=== PATIENT | female | born 1965 | race Caucasian/White ===

== ENCOUNTER 2016-11-16 12:08 | Emergency (ER) | payer OTHER ==
[2016-11-16] MEDS ORDERED: KETOROLAC 30 MG/ML 1 ML VIAL IVP STA (13:49)
[2016-11-16] MEDS ORDERED: SODIUM CHLORIDE 0.9% 1,000 ML IV STA (13:49)
[2016-11-16] MEDS ORDERED: METOCLOPRAMIDE 5 MG/ML 2 ML VIAL IVP STA (13:49)
--- NOTE | 2016-11-16 13:51 | ED ---
General Adult HPI - General Chief complaint: Abdominal Pain Stated complaint: Right side Abd Pain Time Seen by Provider: 11/16/16 13:45 Source: patient, RN notes reviewed Mode of arrival: ambulatory Limitations: no limitations - History of Present Illness Initial comments: Patient is a pleasant 51-year-old female presenting to the emergency Department with right flank pain. Onset was sudden around 2 hours ago. Discomfort has been steady and severe since that time. Patient has had similar symptoms 3-4 times previously associated with kidney stones. Patient has urgency urinate however no hematuria or dysuria. No back pain. Patient has nausea and did vomit. No constipation or diarrhea. No fever. - Related Data Home Medications Medication Instructions Recorded Confirmed HYDROcodone/APAP 10-325MG [[place] 1 tab PO Q6H 01/12/15 11/16/16 10] Isosorbide Mononitrate ER [Imdur] 30 mg PO DAILY 01/12/15 11/16/16 Albuterol Inhaler [Ventolin Hfa 2 puff INHALATION RT-Q6H PRN 12/10/15 11/16/16 Inhaler] Ipratropium [place] [Atrovent Hfa] 2 puff INHALATION RT-DAILY 12/10/15 11/16/16 Ipratropium [place] [Atrovent Hfa] 2 puff INHALATION RT-HS PRN 12/10/15 11/16/16 Pravastatin Sodium [Pravachol] 20 mg PO HS 11/16/16 11/16/16 Previous Rx's Medication Instructions Recorded Ketorolac [Toradol] 10 mg PO Q6HR PRN #15 tab 11/16/16 Metoclopramide HCl [Reglan] 10 mg PO Q6HR PRN #15 tablet 11/16/16 Allergies Allergy/AdvReac Type Severity Reaction Status Date / Time Iodinated Contrast Media - Allergy Rash/Hives Verified 11/16/16 14:04 Oral and shellfish derived [Shellfish] Allergy Rash/Hives Verified 11/16/16 14:04 codeine AdvReac Nausea Verified 11/16/16 12:32 Review of Systems ROS Statement: Those systems with pertinent positive or pertinent negative responses have been documented in the HPI. ROS Other: All systems not noted in ROS Statement are negative. Constitutional: Denies: fever Eyes: Denies: eye pain ENT: Denies: ear pain Respiratory: Denies: cough Cardiovascular: Denies: chest pain Endocrine: Denies: fatigue Gastrointestinal: Reports: abdominal pain, nausea, vomiting Genitourinary: Reports: urgency. Denies: dysuria, hematuria Musculoskeletal: Denies: back pain Skin: Denies: rash Neurological: Denies: weakness Past Medical History Past Medical History: Hypertension History of Any Multi-Drug Resistant Organisms: None Reported Past Surgical History: Section, Orthopedic Surgery Past Psychological History: No Psychological Hx Reported Smoking Status: Current every day smoker Past Alcohol Use History: None Reported Past Drug Use History: Marijuana General Exam Limitations: no limitations General appearance: alert, in no apparent distress Head exam: Present: atraumatic Eye exam: Present: normal appearance, PERRL ENT exam: Present: normal oropharynx Neck exam: Present: normal inspection Respiratory exam: Present: normal lung sounds bilaterally Cardiovascular Exam: Present: regular rate, normal rhythm Expanded Peripheral pulses: 2+: Posterior Tibialis (R), Posterior Tibialis (L) GI/Abdominal exam: Present: soft. Absent: distended, tenderness, guarding, rebound, rigid, pulsatile mass Extremities exam: Present: normal inspection. Absent: pedal edema, calf tenderness Back exam: Present: normal inspection. Absent: tenderness, CVA tenderness (R) Neurological exam: Present: alert Psychiatric exam: Present: normal affect, normal mood Skin exam: Absent: rash Course Vital Signs 11/16/16 11/16/16 12:30 15:00 Temperature 98.4 F Pulse Rate 74 64 Respiratory 18 16 Rate Blood Pressure 200/98 178/84 O2 Sat by Pulse 98 95 Oximetry Medical Decision Making - Medical Decision Making Patient reexamined and resting comfortably in bed. Patient is symptom-free at this time. Patient updated on results and need for follow-up. - Lab Data Result diagrams: 11/16/16 13:45 11/16/16 13:45 Lab Results 11/16/16 11/16/16 11/16/16 Range/Units 13:45 13:45 13:45 WBC 11.9 H (3.8-10.6) k/uL RBC 4.76 (3.80-5.40) m/uL Hgb 14.0 (11.4-16.0) gm/dL Hct 43.1 (34.0-46.0) % MCV 90.6 (80.0-100.0) fL MCH 29.4 (25.0-35.0) pg MCHC 32.4 (31.0-37.0) g/dL RDW 13.6 (11.5-15.5) % Plt Count 299 (150-450) k/uL Sodium 144 (137-145) mmol/L Potassium 4.0 (3.5-5.1) mmol/L Chloride 107 (98-107) mmol/L Carbon Dioxide 24 (22-30) mmol/L Anion Gap 13 mmol/L BUN 16 (7-17) mg/dL Creatinine 1.00 (0.52-1.04) mg/dL Est GFR (MDRD) Af Amer >60 (>60 ml/min/1.73 sqM) Est GFR (MDRD) Non-Af 58 (>60 ml/min/1.73 sqM) Glucose 124 H (74-99) mg/dL Calcium 9.7 (8.4-10.2) mg/dL Total Bilirubin 0.5 (0.2-1.3) mg/dL AST 15 (14-36) U/L ALT 31 (9-52) U/L Alkaline Phosphatase 75 (38-126) U/L Total Protein 7.2 (6.3-8.2) g/dL Albumin 4.5 (3.5-5.0) g/dL Amylase 35 (30-110) U/L Lipase 37 (23-300) U/L Urine Color Yellow Urine Appearance Cloudy H (Clear) Urine pH 5.5 (5.0-8.0) Ur Specific [place] 1.019 (1.001-1.035) Urine Protein Negative (Negative) Urine Glucose (UA) Negative (Negative) Urine Ketones Negative (Negative) Urine Blood Negative (Negative) Urine Nitrate Negative (Negative) Urine Bilirubin Negative (Negative) Urine Urobilinogen <2.0 (<2.0) mg/dL Ur Leukocyte Esterase Negative (Negative) Urine RBC 3 (0-5) /hpf Urine WBC 5 (0-5) /hpf Ur Squamous Epith Cells 8 H (0-4) /hpf Urine Bacteria Occasional H (None) /hpf Urine Mucus Rare H (None) /hpf - Radiology Data Radiology results: image reviewed (Computed tomography scan of the abdomen pelvis shows 3 mm stone right UVJ.) Disposition Clinical Impression: Ureterolithiasis Disposition: HOME SELF-CARE Condition: Stable Instructions: Kidney Stones (ED) Additional Instructions: Please follow-up with primary care physician in the next couple of days for recheck. Return for fevers, uncontrolled pain, uncontrolled vomiting, worsening symptoms or any other concerns. Prescriptions: Ketorolac [Toradol] 10 mg PO Q6HR PRN #15 tab PRN Reason: Pain Metoclopramide HCl [Reglan] 10 mg PO Q6HR PRN #15 tablet PRN Reason: Nausea Referrals: Merced Harvey MD [Primary Care Provider] - 1-2 days Stanley Farnsworth MD [STAFF PHYSICIAN] - 1-2 days
[2016-11-16 14:55] LABS: Aty Lym Flag Slight; CH 30.3; CHCM 33.6; HCT 43.1 % (34.0-46.0); HDW 2.32; MCH 29.4 pg (25.0-35.0); MCHC 32.4 g/dL (31.0-37.0); MCV 90.6 fL (80.0-100.0); Mean Platelet Volume 8.2; RBC 4.76 m/uL (3.80-5.40); RDW 13.6 % (11.5-15.5); WBC 11.9 k/uL (3.8-10.6); WBC (Perox) 12.05
[2016-11-16 15:00] LABS: ALT 31 U/L (9-52); AST 15 U/L (14-36); Alkaline Phosphatase 75 U/L (38-126); Amylase 35 U/L (30-110); Anion Gap 13 mmol/L; Blood Urea Nitrogen 16 mg/dL (7-17); Calcium 9.7 mg/dL (8.4-10.2); Carbon Dioxide 24 mmol/L (22-30); Chloride 107 mmol/L (98-107); Glucose 124 mg/dL (74-99); Non-African American GFR(MDRD) 58 (>60 ml/min/1.73 sqM); Sodium 144 mmol/L (137-145); Total Bilirubin 0.5 mg/dL (0.2-1.3); Total Protein 7.2 g/dL (6.3-8.2)
[2016-11-16 15:01] VITALS: RESP 16
[2016-11-16 15:01] LABS: Appearance,Urine Cloudy (Clear); Bacteria,Urine Occasional /hpf; Bilirubin,Urine Negative (Negative); Glucose,Urine (UA) Negative (Negative); Ketones,Urine Negative (Negative); Leukocyte Esterase,Urine Negative (Negative); Mucus,Urine Rare /hpf; Nitrite,Urine Negative (Negative); PH, Urine 5.5 (5.0-8.0); Particle Count 11074; Protein,Urine Negative (Negative); RBC,Urine 3 /hpf (0-5); Specific Gravity,Urine 1.019 (1.001-1.035); Squamous Epithelial Cell,Urine 8 /hpf (0-4); UA Billing (MACRO vs. MICRO) MICRO; Urobilinogen,Urine <2.0 mg/dL (<2.0); WBC,Urine 5 /hpf (0-5)
--- NOTE | 2016-11-16 15:38 | CT ---
EXAMINATION TYPE: CT abdomen pelvis wo con DATE OF EXAM: 11/16/2016 3:31 PM COMPARISON: NONE HISTORY: Right flank pain. CT DLP: 935.00 mGycm FINDINGS: LUNG BASES: No evidence for nodule. No evidence for infiltrate. LIVER/GB: The gallbladder is unremarkable. No space-occupying hepatic lesion. PANCREAS: No pancreatic mass identified. No inflammatory process seen. SPLEEN: No evidence for splenomegaly. No intrasplenic lesions seen. ADRENALS: No adrenal nodules identified. No evidence for thickening. KIDNEYS: 3 mm right UVJ calculus resulting in [id number] right-sided hydroureteronephrosis. Rig ht renal edema with perinephric stranding. Superimposed infection not excluded. Additional nonobstruc ting calculi identified bilaterally. BOWEL: Appendix has a normal appearance. No evidence of bowel obstruction. No inflammatory process. Lymph nodes: No evidence for adenopathy greater than 1 cm. Abdominal aorta: Atheromatous changes seen. No evidence for aneurysm. Genital organs: No significant abnormality. Other: No significant abnormality. IMPRESSION: 3 mm right UVJ calculus resulting in [id number] right-sided hydroureteronephrosis. Right renal edema with perinephric stranding. Superimposed infection not excluded.
[2016-11-16 15:40] LABS: Add Differential Manual Differential
[2016-11-16 16:05] VITALS: BP 158/88; PULSE 72; TEMP 98.8
== END 2016-11-16 16:09 | disposition home or self-care (01) ==
LOC: EC 12:08
DX: N13.2 Hydronephrosis with renal and ureteral calculous obstruction (principal); N04.9 Nephrotic syndrome with unspecified morphologic changes; R11.2 Nausea with vomiting, unspecified; R39.15 Urgency of urination; I10 Essential (primary) hypertension; F17.200 Nicotine dependence, unspecified, uncomplicated; Z79.891 Long term (current) use of opiate analgesic; Z79.899 Other long term (current) drug therapy; Z91.041 Radiographic dye allergy status; Z88.5 Allergy status to narcotic agent; Z91.013 Allergy to seafood
CPT/HCPCS: 99284 ×2; 96374 ×2; 96375 ×2; 96361 ×3; 36415; 80053; 82150; 83690; 85025; 81001; 74176; J2765; J1885

== ENCOUNTER → 2017-02-04 | Outpatient (CLI) | payer OTHER ==
--- NOTE | 2017-02-05 07:24 | MM ---
Reason for exam: additional evaluation requested from prior study. Last mammogram was performed 10 months ago. History: Family history of premenopausal breast cancer in mother at age 55. MG discontinued stereo core LT of the left breast, September 16, 2015. Benign US breast aspiration single LT of the left breast, August 06, 2014. Physical Findings: Nurse Summary: 0.5cm nodule in the left breast at 12:30 (nurse dw). MG Diagnostic Mammo w CAD PERLA Bilateral CC and MLO view(s) were taken. Prior study comparison: March 25, 2016, left breast MG diagnostic mammo LT w CAD. July 25, 2015, bilateral MG diagnostic mammo w CAD PERLA. There is no discrete abnormality at BB. There is focal asymmetry left upper outer quadrant. This finding is changed when compared with previous exams. These results were verbally communicated with the patient and result sheet given to the patient on 02/04/17. ASSESSMENT: Incomplete: need additional imaging evaluation, BI-RAD 0 RECOMMENDATION: Ultrasound of the left breast.
--- NOTE | 2017-02-05 07:26 | USB ---
Reason for exam: additional evaluation requested from abnormal screening. History: Family history of premenopausal breast cancer in mother at age 55. MG discontinued stereo core LT of the left breast, September 16, 2015. Benign US breast aspiration single LT of the left breast, August 06, 2014. US Breast Limited LT Left breast ultrasound demonstrates a 0.9 x 0.5 x 1.2cm cystic lesion at 12 o'clock and a 0.5 x 0.4 x 0.5cm cystic lesion at 3 o'clock. These results were verbally communicated with the patient and result sheet given to the patient on 02/04/17. ASSESSMENT: Probably benign, BI-RAD 3 RECOMMENDATION: Ultrasound of the left breast in 6 months. Manage on a clinical basis with regard to palpable region.
== END | disposition home or self-care (01) ==
LOC: RADMAMWWP 14:18
PROVIDERS: ATTEND Surgery
DX: R92.8 Other abnormal and inconclusive findings on diagnostic imaging of breast (principal)
CPT/HCPCS: 76642; G0204

== ENCOUNTER → 2017-05-18 | Outpatient (CLI) | payer OTHER ==
--- NOTE | 2017-05-19 08:30 | WWHP ---
DATE OF SERVICE: 05/18/2017 CHIEF COMPLAINT: The patient is here for her routine gynecologic exam and mammogram. HPI: This is a 52-year-old G2, P2 with an LMP of 05/11/17. She is status post tubal ligation. She states she has been experiencing intermittent left lower quadrant and left pelvic pains during the past 2 months. These pains are very brief, but can be sharp. Most days she does not notice the pain or discomfort. She does not believe that it is related to any type of movement or activity. PAST MEDICAL HISTORY: Gastroesophageal reflux disease, chronic back problems, rheumatoid arthritis and COPD. MEDICATIONS: 1. Isosorbide 30 mg daily. 2. [place] 10/325 q.i.d., p.r.n. for back pain. 3. Ventolin inhaler p.r.n. 4. Atrovent inhaler p.r.n. 5. Pravastatin 1 daily. Allergies to CODEINE and SHELLFISH. 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 REVIEW OF SYSTEMS: Weight has been stable. She denies respiratory, cardiac or GI problems. PHYSICAL EXAM: Blood pressure 132/83. Height 5 feet 3-1/2 inches. Weight 170 pounds. Temperature 98.2. Pulse 54. This is a well-developed, well-nourished white female who is alert and oriented x3 in no acute distress. HEENT is within normal limits. NECK: Supple without mass or thyromegaly. CHEST AND LUNGS: Clear to auscultation. HEART: Regular rate and rhythm. Breasts are without mass or discharge. There is minimal tenderness at the 4 o' clock position of the left breast. She states this is the area that has been observed with mammograms and ultrasounds. She states she does have a marked in the left breast in that area. Axillary exam is negative for adenopathy. BACK: Negative for CVA tenderness. ABDOMEN: Soft, nontender without palpable masses. PELVIC EXAM: Normal external genitalia. Cervix and vagina appear normal. There is no cervical motion tenderness and no evidence of prolapse. The uterus is mid position, nongravid size and nontender. There are no palpable adnexal masses or tenderness. Rectovaginal exam is negative for mass or tenderness and is negative for occult blood. EXTREMITIES: Nontender. IMPRESSION: 1. A 52-year-old premenopausal female with intermittent brief left lower quadrant and left pelvic pains without any significant physical findings at this time. 2. The patient is status post tubal ligation. PLAN: 1. Pap smear was deferred since she had a normal one last year. 2. Self-breast examination was discussed. 3. Mammogram was recently done on 02/04/17. She also had a left breast ultrasound at that time. The findings were probably benign and recommendation was for an ultrasound of the left breast in 6 months. An order slip for the ultrasound of the left breast was given to the patient and she will do this in July of this year. 4. Pelvic ultrasound will be scheduled. If this is unremarkable, we will continue with conservative management. She will see if the pains continue and if so she will see if they are related to any types of activities. 5. She will return in one year and p.r.dana WILLETT
== END | disposition home or self-care (01) ==
LOC: WWCWWP 13:56
PROVIDERS: ATTEND Obstetrics & Gynecology
DX: Z01.419 Encounter for gynecological examination (general) (routine) without abnormal findings (principal)

== ENCOUNTER → 2017-07-19 | Outpatient (CLI) | payer OTHER ==
--- NOTE | 2017-07-19 10:25 | USB ---
Reason for exam: clinical finding. History: Family history of premenopausal breast cancer in mother at age 55. MG discontinued stereo core LT of the left breast, September 16, 2015. Benign US breast aspiration single LT of the left breast, August 06, 2014. Indicated problem(s): other indicated problem in the left breast. Physical Findings: Nurse Summary: left breast prominant nodular tissue 12 o'clock, 3 o'clock, bilateral pain with breast exam (nurse ts). US Breast LT Left breast ultrasound includes all four quadrants, the retroareolar region and axilla. Finding demonstrates a 0.9 x 0.5 x 0.5cm lobular, mixed lesion at 1 o'clock, stable from 2014, a 0.4 x 0.3 x 0.2cm cystic lesion at 3 o'clock, a 0.4 x 0.3 x 0.4cm mixed lesion at 4 o'clock and a 0.9 x 0.8 x 0.3cm mixed lesion at 5 o'clock. These results were verbally communicated with the patient and result sheet given to the patient on 07/19/17. ASSESSMENT: Probably benign, BI-RAD 3 RECOMMENDATION: Follow-up diagnostic mammogram of both breasts in 6 months. Back on schedule for January 2018.
== END | disposition home or self-care (01) ==
LOC: RADUSWWP 08:51
PROVIDERS: ATTEND Obstetrics & Gynecology
DX: R92.8 Other abnormal and inconclusive findings on diagnostic imaging of breast (principal)

== ENCOUNTER 2018-03-24 10:49 | Emergency (ER) | payer OTHER ==
--- NOTE | 2018-03-24 11:18 | ED ---
Recheck HPI - General Chief Complaint: Recheck/Abnormal Lab/Rx Stated Complaint: Hypertensive Time Seen by Provider: 03/24/18 11:00 Source: patient, RN notes reviewed Mode of arrival: ambulatory Limitations: no limitations - History of Present Illness Initial Comments: This is a 52-year-old female presents emergency from chief complaint of hypertension. Patient states she is recently started on lisinopril 2.5 mg. Patient states she checked her blood pressure at work today and states he was elevated 190/90. Patient states that she felt shaky and she was sent home from work. Patient states she feels better at this time. Denies any chest pain, headache, dizziness, nausea, vomiting diarrhea constipation. Patient also takes Imdur. Patient denies any recent dietary changes. Patient is a smoker. - Related Data Home Medications Medication Instructions Recorded Confirmed HYDROcodone/APAP 10-325MG [[place] 1 tab PO QID 01/12/15 03/24/18 10] Isosorbide Mononitrate ER [Imdur] 30 mg PO DAILY 01/12/15 03/24/18 Ergocalciferol (Vitamin D2) 50,000 unit PO DIRECTED 03/24/18 03/24/18 [Vitamin D2] Lisinopril [Zestril] 2.5 mg PO DAILY 03/24/18 03/24/18 Omeprazole 20 mg PO DAILY 03/24/18 03/24/18 Pravastatin Sodium [Pravachol] 40 mg PO HS 03/24/18 03/24/18 Allergies Allergy/AdvReac Type Severity Reaction Status Date / Time Iodinated Contrast- Oral and Allergy Rash/Hives Verified 03/24/18 11:15 IV Dye [Iodinated Contrast Media - Oral and] shellfish derived [Shellfish] Allergy Rash/Hives Verified 03/24/18 11:15 codeine AdvReac Nausea Verified 03/24/18 11:15 Review of Systems ROS Statement: Those systems with pertinent positive or pertinent negative responses have been documented in the HPI. ROS Other: All systems not noted in ROS Statement are negative. Past Medical History Past Medical History: Hyperlipidemia, Hypertension Additional Past Medical History / Comment(s): HEART MURMUR History of Any Multi-Drug Resistant Organisms: None Reported Past Surgical History: Section, Orthopedic Surgery Past Psychological History: No Psychological Hx Reported Smoking Status: Current every day smoker Past Alcohol Use History: None Reported Past Drug Use History: Marijuana General Exam Limitations: no limitations General appearance: alert, in no apparent distress Head exam: Present: atraumatic, normocephalic, normal inspection Neck exam: Present: normal inspection, full ROM. Absent: tenderness, meningismus, lymphadenopathy Respiratory exam: Present: normal lung sounds bilaterally. Absent: respiratory distress, wheezes, rales, rhonchi, stridor Cardiovascular Exam: Present: regular rate, normal rhythm, normal heart sounds. Absent: systolic murmur, diastolic murmur, rubs, gallop, clicks GI/Abdominal exam: Present: soft, normal bowel sounds. Absent: distended, tenderness, guarding, rebound, rigid Neurological exam: Present: alert Skin exam: Present: warm, dry, intact, normal color. Absent: rash Course Vital Signs 03/24/18 03/24/18 10:53 11:18 Temperature 98.8 F Pulse Rate 65 60 Respiratory 16 18 Rate Blood Pressure 167/98 164/115 O2 Sat by Pulse 97 98 Oximetry Medical Decision Making - Medical Decision Making 52-year-old female presented from for hypertension. Patient's blood pressure is mildly elevated. Patient is asymptomatic. Patient recently started on lisinopril 2.5 mg. Patient will be given additional 5 mg emergency department. Patient will take 5 mg at home daily follow up PCP for recheck blood pressure and return parameters were discussed. Disposition Clinical Impression: Hypertension Disposition: HOME SELF-CARE Condition: Stable Instructions: Hypertension (ED) Additional Instructions: Take lisinopril 5 mg daily. Monitor blood pressure and follow-up your PCP.Please return to the Emergency Department if symptoms worsen or any other concerns. Is patient prescribed a controlled substance at d/c from ED?: No Referrals: Merced Harvey MD [Primary Care Provider] - 1-2 days
[2018-03-24] MEDS ORDERED: LISINOPRIL 5 MG TAB PO STA (11:35)
[2018-03-24 12:00] VITALS: BP 160/95; PULSE 58; RESP 16; TEMP 98.5
== END 2018-03-24 12:07 | disposition home or self-care (01) ==
LOC: EC 10:49
DX: I10 Essential (primary) hypertension (principal); E78.5 Hyperlipidemia, unspecified; F17.200 Nicotine dependence, unspecified, uncomplicated; Z79.891 Long term (current) use of opiate analgesic; Z79.899 Other long term (current) drug therapy; Z88.5 Allergy status to narcotic agent; Z91.013 Allergy to seafood; Z91.041 Radiographic dye allergy status
CPT/HCPCS: 99282

== ENCOUNTER → 2018-04-29 | Outpatient (CLI) | payer OTHER ==
--- NOTE | 2018-05-02 08:52 | MM ---
Reason for exam: additional evaluation requested from prior study. Last mammogram was performed 1 year and 3 months ago. History: Family history of premenopausal breast cancer in mother at age 55. MG discontinued stereo core LT of the left breast, September 16, 2015. Benign US breast aspiration single LT of the left breast, August 06, 2014. Physical Findings: Nurse did not find any significant physical abnormalities on exam. MG Diagnostic Mammo w CAD PERLA Bilateral CC, MLO, and XCCL view(s) were taken. Prior study comparison: February 04, 2017, bilateral MG diagnostic mammo w CAD PERLA. March 25, 2016, left breast MG diagnostic mammo LT w CAD. The breast tissue is heterogeneously dense. This may lower the sensitivity of mammography. There are benign appearing round, oval, circumscribed bilateral masses waxing and waning over multiple priors mammographically compatible with cysts. No suspicious abnormality. Left biopsy marker. No significant new findings when compared with previous films. These results were verbally communicated with the patient and result sheet given to the patient on 04/29/18. ASSESSMENT: Benign, BI-RAD 2 RECOMMENDATION: Routine screening mammogram of both breasts in 1 year.
== END | disposition home or self-care (01) ==
LOC: RADMAMWWP 13:39
PROVIDERS: ATTEND Obstetrics & Gynecology
DX: R92.8 Other abnormal and inconclusive findings on diagnostic imaging of breast (principal)
CPT/HCPCS: 77066

== ENCOUNTER → 2018-05-31 | Outpatient (CLI) | payer OTHER ==
[2018-05-31 13:46] VITALS: BP 122/78; PULSE 61; RESP 18; TEMP 98.2; BMI 27.3
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
== END | disposition home or self-care (01) ==
LOC: WWCWWP 12:57
PROVIDERS: ATTEND Obstetrics & Gynecology
DX: Z53.9 Procedure and treatment not carried out, unspecified reason (principal)

== ENCOUNTER → 2018-06-09 | Outpatient (CLI) | payer OTHER ==
--- NOTE | 2018-06-10 08:55 | US ---
EXAMINATION TYPE: US pelvic complete DATE OF EXAM: 06/09/2018 COMPARISON: NONE CLINICAL HISTORY: R10.2 Pelvic Pain. TECHNIQUE: . Transabdominal sonographic images of the pelvis were acquired. Patient deferred TV pen ding insurance check. Date of LMP: 3 mos ago EXAM MEASUREMENTS: Uterus: 8.7 x 3.7 x 4.8 cm Endometrial Stripe: obliterated, indicative in possible leiomyomas Right Ovary: not identified Left Ovary: 1.8 x 2.1 x 1.5 cm 1. Uterus: Anteverted 2. Endometrium: obliterate, indicative in possible leiomyomas 3. Right Ovary: not identified 4. Left Ovary: wnl 5. Bilateral Adnexa: wnl 6. Posterior cul-de-sac: no free fluid IMPRESSION: 1. Suspect Underlying diffuse leiomyomatous change.
== END | disposition home or self-care (01) ==
LOC: RADUSWWP 15:37
PROVIDERS: ATTEND Obstetrics & Gynecology
DX: R10.2 Pelvic and perineal pain (principal)
CPT/HCPCS: 76856

== ENCOUNTER → 2018-09-02 | Outpatient (CLI) | payer OTHER ==
--- NOTE | 2018-09-02 09:13 | US ---
EXAMINATION TYPE: US carotid duplex BILAT DATE OF EXAM: 09/02/2018 COMPARISON: NONE CLINICAL HISTORY: R42 Intermittent light headedness. No hx of TIA, dizzy, HTN, High cholesterol, smok er EXAM MEASUREMENTS: RIGHT: Peak Systolic Velocity (PSV) cm/sec ----- Right CCA: 70.4 ----- Right ICA: 65.3 ----- Right ECA: 78.9 ICA/CCA ratio: 0.9 RIGHT: End Diastole cm/sec ----- Right CCA: 28.5 ----- Right ICA: 33.2 ----- Right ECA: 17.2 LEFT: Peak Systolic Velocity (PSV) cm/sec ----- Left CCA: 75.6 ----- Left ICA: 82.2 ----- Left ECA: 77.8 ICA/CCA ratio: 1.1 LEFT: End Diastole cm/sec ----- Left CCA: 29.3 ----- Left ICA: 31.5 ----- Left ECA: 9.5 VERTEBRALS (direction of flow): Right Vertebral: Antegrade Left Vertebral: Antegrade Rhythm: Normal Grayscale images show no significant focal plaque at carotid bulb level bilaterally. Velocity measure ments and ratios remain within normal limits in visualized portion of both internal carotid arteries. IMPRESSION: No hemodynamically significant stenosis is seen in either internal carotid artery. Criteria for Assigning % of Stenosis / Diameter reduction (Estimation based on the indirect measurements of the internal carotid artery velocities (ICA PSV). 1. Normal (no stenosis)=ICA PSV < 125 cm/s: ratio < 2.0: ICA EDV<40 cm/s. 2. Less than 50% stenosis=ICA PSV < 125 cm/s: ratio < 2.0: ICA EDV<40 cm/s. 3. 50 to 69% stenosis=ICA PSV of 125 to 230 cm/s: ration 2.0 ? 4.0: ICA EDV 40-100 cm/s. 4. Greater than 70% stenosis to near occlusion= ICA PSV > 230 cm/s: ratio > 4.0: ICA EDV > 100 cm/s. 5. Near occlusion= ICA PSV velocities may be low or undetectable: variable ratio and ICA EDV. 6. Total occlusion=unable to detect flow.
--- NOTE | 2018-09-02 11:31 | MR ---
EXAMINATION TYPE: MR brain wo con DATE OF EXAM: 09/02/2018 COMPARISON: 11/28/2014 HISTORY: Intermittent light headedness, dizziness T1-weighted sagittal, T2, FLAIR, and diffusion axial, and T2 coronal coronal views of the brain are s ubmitted. Note is made patient refused contrast. There is no evidence of acute ischemia. The ventricles, basal cisterns, and sulci overlying the conv exities are consistent with the patient's age. There is no mass effect. Craniocervical junction maintained. Sella turcica has a normal appearance. No cerebellopontine angle mass. Changes of chronic sinusitis and bilateral mastoiditis suggested. There is a small amount of fluid surrounding the optic nerves. Back space no definite flattening of the orbits. There are a few scattered areas of abnormal signal all measuring less than 5 mm within the white santos er bilaterally. Approximately 15 lesions are seen. There is a nasal septal deviation. There is mild prominence of the basilar tip. No midline shift or mass effect. IMPRESSION: 1. Nonspecific mild white matter changes. Findings can be seen with hypertension, remote microvascula r ischemia, vasculitis, or demyelinating disease. 2. Small amount of fluid surrounding the optic nerves is nonspecific and occasionally BE seen with be nign increased intracranial hypertension. Correlate clinically. 3. Mild prominence the basilar tip could be correlated with MRA [place] exclude tiny aneurys m. 4. Persistent abnormal signal within the mastoid air cells and sinuses suggestive of bilateral mastoi ditis and sinusitis.
== END | disposition home or self-care (01) ==
LOC: RADMRIMAIN 08:18
PROVIDERS: ATTEND Family Medicine
DX: R90.89 Other abnormal findings on diagnostic imaging of central nervous system (principal); R42 Dizziness and giddiness; I10 Essential (primary) hypertension; Z87.898 Personal history of other specified conditions
CPT/HCPCS: 70551; 93880

== ENCOUNTER → 2018-09-30 | Outpatient (CLI) | payer OTHER ==
--- NOTE | 2018-09-30 14:23 | MR ---
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 Th ree-dimensional reconstructions performed on an alternate workstation. FINDINGS: Anterior and posterior circulation are patent and intact. There is no evident aneurysm, dis section, embolus, or vascular malformation. IMPRESSION: Normal [place] MRA.
== END | disposition home or self-care (01) ==
LOC: RADMRIMAIN 13:09
PROVIDERS: ATTEND Family Medicine
DX: R90.89 Other abnormal findings on diagnostic imaging of central nervous system (principal); R42 Dizziness and giddiness
CPT/HCPCS: 70544

== ENCOUNTER → 2018-10-25 | Outpatient (CLI) | payer OTHER ==
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
== END | disposition home or self-care (01) ==
LOC: SLEEP 15:47
PROVIDERS: ATTEND Internal Medicine Critical Care Medicine
DX: R06.83 Snoring (principal); R01.1 Cardiac murmur, unspecified; F17.210 Nicotine dependence, cigarettes, uncomplicated; Z82.0 Family history of epilepsy and other diseases of the nervous system
CPT/HCPCS: 99211

== ENCOUNTER → 2019-06-06 | Outpatient (CLI) | payer OTHER ==
[2019-06-06 13:40] VITALS: BP 122/73; PULSE 57; RESP 18; TEMP 98.6; BMI 28.8
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
--- NOTE | 2019-06-09 09:09 | MM ---
Reason for exam: screening (asymptomatic). Last mammogram was performed 1 year and 1 month ago. History: Family history of premenopausal breast cancer in mother at age 55. MG discontinued stereo core LT of the left breast, September 16, 2015. Benign US breast aspiration single LT of the left breast, August 06, 2014. Physical Findings: A clinical breast exam by your physician is recommended on an annual basis and results should be correlated with mammographic findings. MG Screening Mammo w CAD Bilateral CC and MLO view(s) were taken. Prior study comparison: April 29, 2018, bilateral MG diagnostic mammo w CAD PER[facility]. February 04, 2017, bilateral MG diagnostic mammo w CAD [facility]. The breast tissue is heterogeneously dense. This may lower the sensitivity of mammography. There is no discrete abnormality. No significant changes when compared with prior studies. ASSESSMENT: Negative, BI-RAD 1 RECOMMENDATION: Routine screening mammogram of both breasts in 1 year.
== END | disposition home or self-care (01) ==
LOC: WWCWWP 13:23
PROVIDERS: ATTEND Obstetrics & Gynecology
DX: Z12.31 Encounter for screening mammogram for malignant neoplasm of breast (principal)
CPT/HCPCS: 77067

== ENCOUNTER → 2021-01-22 | Outpatient (CLI) | payer OTHER ==
--- NOTE | 2021-01-24 12:10 | MM ---
Reason for exam: screening (asymptomatic). Last mammogram was performed 1 year and 8 months ago. History: Family history of premenopausal breast cancer in mother at age 55. MG discontinued stereo core LT of the left breast, September 16, 2015. Benign US breast aspiration single LT of the left breast, August 06, 2014. Physical Findings: A clinical breast exam by your physician is recommended on an annual basis and results should be correlated with mammographic findings. MG Screening Mammo w CAD Bilateral CC and MLO view(s) were taken. Prior study comparison: June 06, 2019, bilateral MG screening mammo w CAD. April 29, 2018, bilateral MG diagnostic mammo w CAD PERLA. The breast tissue is heterogeneously dense. This may lower the sensitivity of mammography. Previous mammotome biopsy in the left breast. Stable regional punctate calcifications on the left. Subtle nodularity lateral left CC view is unchanged from 2016. No significant changes when compared with prior studies. ASSESSMENT: Benign, BI-RAD 2 RECOMMENDATION: Routine screening mammogram of both breasts in 1 year.
== END | disposition home or self-care (01) ==
LOC: RADMAMWWP 12:00
PROVIDERS: ATTEND Family Medicine
DX: Z12.31 Encounter for screening mammogram for malignant neoplasm of breast (principal); Z80.3 Family history of malignant neoplasm of breast
CPT/HCPCS: 77067

== ENCOUNTER → 2021-03-12 | Outpatient (CLI) | payer OTHER ==
[2021-03-12 10:18] VITALS: BP 104/65; PULSE 51; RESP 16; TEMP 98.3
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
== END ==
LOC: WWCWWP 09:54
PROVIDERS: ATTEND Obstetrics & Gynecology
DX: Z01.419 Encounter for gynecological examination (general) (routine) without abnormal findings (principal); N95.1 Menopausal and female climacteric states; J44.9 Chronic obstructive pulmonary disease, unspecified; K21.9 Gastro-esophageal reflux disease without esophagitis; E78.5 Hyperlipidemia, unspecified; I10 Essential (primary) hypertension; M06.9 Rheumatoid arthritis, unspecified; F17.210 Nicotine dependence, cigarettes, uncomplicated; Z79.899 Other long term (current) drug therapy; Z88.5 Allergy status to narcotic agent; Z91.041 Radiographic dye allergy status; Z91.013 Allergy to seafood; Z87.42 Personal history of other diseases of the female genital tract

== ENCOUNTER → 2022-06-04 | Outpatient (CLI) | payer OTHER ==
--- NOTE | 2022-06-04 16:53 | US ---
EXAMINATION TYPE: US transvaginal DATE OF EXAM: 06/04/2022 COMPARISON: NONE CLINICAL HISTORY: N95.0 POST MENOPAUSAL BLEEDING. vaginal bleeding lasting 4 days 2-3 weeks ago TECHNIQUE: Transvaginal (TV). patient preferred TV exam rather than waiting to fill bladder Date of LMP: unknown EXAM MEASUREMENTS: Uterus: 7.2 x 2.9 x 3.8 cm Endometrial Stripe: 0.7 cm Right Ovary: unable to visualize Left Ovary: unable to visualize 1. Uterus: Anteverted calcifications noted 2. Endometrium: slightly thickened 3. Right Ovary: Obscured by overlying bowel gas 4. Left Ovary: Obscured by overlying bowel gas 5. Bilateral Adnexa: wnl 6. Posterior cul-de-sac: wnl Endometrial stripe up to 7 mm slightly thickened for postmenopausal female. 2 scattered dystrophic ca lcifications are present. IMPRESSION: Slight abnormal thickening of endometrium. Neoplasm needs to be excluded. Further investi gation with sampling is advised.
== END | disposition home or self-care (01) ==
LOC: RADUSWWP 16:20
PROVIDERS: ATTEND Family Medicine
DX: R93.89 Abnormal findings on diagnostic imaging of other specified body structures (principal)
CPT/HCPCS: 76830

== ENCOUNTER → 2023-07-02 | Outpatient (CLI) | payer MEDICARE, OTHER ==
--- NOTE | 2023-07-02 10:03 | US ---
EXAMINATION TYPE: US extremity nonvasc mass RT DATE OF EXAM: 07/02/2023 COMPARISON: NONE CLINICAL INDICATION: Female, 58 years old with history of M25.461 PAIN IN RIGHT KNEE, L98.9SKIN LESIO N; Patient has lump/area of swelling right lateral/anterior knee x a few months. TECHNIQUE: FINDINGS: Scanned right anterior-lateral knee at patient's area of swelling. Complex fluid collection seen measures: 3.0 x 0.9 x 0.8 cm. Superior to this, there appears to be anechoic fluid-appearing area: 1.4 x 1.0 x 0.3 cm. IMPRESSION: Complex fluid collection is noted.
--- NOTE | 2023-07-05 09:57 | MM ---
Reason for Exam: Screening (asymptomatic). Last mammogram was performed 2 year(s) and 5 month(s) ago. Patient History: Menarche at age 12. First Full-Term at age 16. Postmenopausal. 08/06/2014, Benign Cyst Aspiration on the left side. 09/16/2015, MG discontinued stereo core LT on the left side. Mother had breast cancer, age 55. Last menstrual period: Risk Values: Lanette 5 year model risk: 2.5%. NCI Lifetime model risk: 13.8%. Prior Study Comparison: 04/29/2018 Bilateral Diagnostic Mammogram, [facility]. 06/06/2019 Bilateral Screening Mammogram, [facility]. 01/22/2021 Bilateral Screening Mammogram, [facility]. Tissue Density: The breast tissue is heterogeneously dense. This may lower the sensitivity of mammography. Findings: Analyzed By CAD. Architectural distortion right breast lateral aspect 6.2 cm the nipple measuring 6 mm, slice 42 of 63 on CC imaging and 5.9 cm from nipple and the upper aspect on MLO imaging. Left breast: There is no suspicious group of microcalcifications or new suspicious mass. Overall Assessment: Incomplete: need additional imaging evaluation, BI-RAD 0 Management: Diagnostic Mammogram of the right breast. Diagnostic Breast Ultrasound of the right breast. [facility] will attempt to contact patient to return for supplemental views and ultrasound if indicated. Patient should continue monthly self-breast exams. A clinical breast exam by your physician is recommended on an annual basis. This exam should not preclude additional follow-up of suspicious palpable abnormalities. Note on Lanette scores and lifetime risk: 1. A Lanette score greater than 3% is considered moderate risk. If this is the case, consider specialist referral to assess eligibility for a risk reducing agent. 2. If overall lifetime risk for the development of breast cancer is 20% or higher, the patient may qualify for future screening with alternating mammogram and breast MRI. Electronically signed and approved by: Karson Lanza DO
== END | disposition home or self-care (01) ==
LOC: RADMAMWWP 09:19
PROVIDERS: ATTEND Family Medicine
DX: Z12.31 Encounter for screening mammogram for malignant neoplasm of breast (principal); L98.9 Disorder of the skin and subcutaneous tissue, unspecified; M25.561 Pain in right knee; Z80.3 Family history of malignant neoplasm of breast; Z78.0 Asymptomatic menopausal state
CPT/HCPCS: 77063; 77067

== ENCOUNTER → 2023-08-04 | Day surgery (SDC) | payer MEDICARE, OTHER ==
--- NOTE | 2023-08-06 07:52 | USB ---
Risk Values: Lanette 5 year model risk: 2.5%. NCI Lifetime model risk: 13.8%. Findings: Ultrasound guided core biopsy was discontinued and rescheduled when taking blood thinner the day before. Management: Ultrasound-Guided Core Biopsy of the right breast. Electronically signed and approved by: Darwin Frazier M.D. Radiologis
== END ==
LOC: RADUSWWP 12:52
PROVIDERS: ATTEND Family Medicine
DX: Z53.8 Procedure and treatment not carried out for other reasons (principal)

== ENCOUNTER → 2024-06-07 | Outpatient (CLI) | payer MEDICARE, OTHER ==
--- NOTE | 2024-06-28 11:34 | MM ---
Reason for Exam: Post Procedure Mammogram. Last screening mammogram was performed 11 month(s) ago. Patient History: Menarche at age 12. First Full-Term at age 16. Postmenopausal. 08/06/2014, Benign Cyst Aspiration on the left side. 08/04/2023, US discontinued breast bx RT on the right side. 09/16/2015, MG discontinued stereo core LT on the left side. Mother had breast cancer, age 55. Risk Values: Lanette 5 year model risk: 2.6%. NCI Lifetime model risk: 13.5%. Prior Study Comparison: 01/22/2021 Bilateral Screening Mammogram, [facility]. 07/02/2023 Bilateral MG 3D screening mammo w/cad, [facility]. 07/13/2023 Right MG 3D work up w/cad RT, [facility]. 07/13/2023 Right US breast workup limited RT, [facility]. Tissue Density: Right: The breasts are heterogeneously dense, which may obscure small masses. Pathology Description: Location: 11 o'clock. Marker Left Behind. Needle Type: Celero Cores: 4 Gauge: 12 The procedure of ultrasound guided core biopsy was explained to the patient. Benefits, alternatives, and risks were discussed. An informed consent was then obtained. The patient was placed in supine positioning for imaging and for the procedure. The overlying skin was prepped and draped in usual sterile fashion. Lidocaine buffered with bicarbonate was used as anesthetic into the skin and subcutaneous tissue up to area of concern in the right 11:00 breast. Under ultrasound guidance, a 12-gauge vacuum assisted biopsy gun device was used to obtain 4 core samples. Following this, a biopsy clip was left in lesion. The patient tolerated the procedure well without any immediate complication. The patient was kept in the radiology department for short stay after the procedure and then discharged home in stable condition. Postprocedure mammogram: The patient was transferred to mammography for physician ordered post procedure mammogram for clip placement verification. Impression: Successful, uncomplicated ultrasound guided core biopsy of area of concern in the right 11:00 breast, full pathology results to follow. Pathology Results: Result: Malignant, Invasive ductal carcinoma. RIGHT BREAST, 11:00, ULTRASOUND GUIDED CORE BIOPSY: Invasive ductal carcinoma, preliminarily Grade 2, with microcalcification and focal DCIS. See Surgical Pathology Cancer Case Summary and comment. Overall Assessment: Malignant Assessment: MG diagnostic mammo RT wo CAD - Right: Known biopsy proven malignancy, BI-RAD 6. Management: Surgical Consultation of the right breast. Electronically signed and approved by: Darwin Frazier M.D. Radiologis
== END | disposition home or self-care (01) ==
LOC: RADUSWWP 18:59
PROVIDERS: ATTEND Family Medicine
DX: C50.411 Malignant neoplasm of upper-outer quadrant of right female breast (principal); R92.8 Other abnormal and inconclusive findings on diagnostic imaging of breast; Z78.0 Asymptomatic menopausal state; Z80.3 Family history of malignant neoplasm of breast
CPT/HCPCS: 88305; 88342; 88341; 77065; 19083; A4648

== ENCOUNTER → 2024-07-06 | Outpatient (CLI) | payer MEDICARE, OTHER ==
[2024-07-06 15:32] VITALS: BP 172/104; PULSE 89; RESP 18; TEMP 98.3
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
== END ==
LOC: WWCWWP 14:38
PROVIDERS: ATTEND Surgery
DX: R92.8 Other abnormal and inconclusive findings on diagnostic imaging of breast (principal); C50.911 Malignant neoplasm of unspecified site of right female breast; G89.29 Other chronic pain; F17.290 Nicotine dependence, other tobacco product, uncomplicated; Z80.3 Family history of malignant neoplasm of breast; Z17.0 Estrogen receptor positive status [ER+]; Z79.01 Long term (current) use of anticoagulants; Z88.5 Allergy status to narcotic agent; Z91.041 Radiographic dye allergy status; Z91.013 Allergy to seafood

== ENCOUNTER → 2024-07-14 | Outpatient (CLI) | payer MEDICARE, OTHER ==
--- NOTE | 2024-07-14 12:32 | MM ---
Reason for Exam: Follow-up at short interval from prior study. Last screening mammogram was performed 12 month(s) ago. Patient History: Menarche at age 12. First Full-Term at age 16. Postmenopausal. Breast cancer, right, age 59. 06/07/2024, Malignant US biopsy breast VAD RT on the right side. 08/06/2014, Benign Cyst Aspiration on the left side. 08/04/2023, US discontinued breast bx RT on the right side. 09/16/2015, MG discontinued stereo core LT on the left side. Mother had breast cancer, age 55. Prior Study Comparison: 07/02/2023 Bilateral MG 3D screening mammo w/cad, [facility]. 07/13/2023 Right MG 3D work up w/cad RT, [facility]. 06/07/2024 Right MG diagnostic mammo RT wo CAD, [facility]. Tissue Density: Left: The breasts are heterogeneously dense, which may obscure small masses. Findings: Analyzed By CAD. Pattern is stable. Benign scattered calcifications are present. Core marker is within the left breast. No significant interval change. No suspicious groups of microcalcifications, spiculated or lobular masses, architectural distortion or other secondary signs of malignancy are mammographically apparent. Overall Assessment: Known biopsy proven malignancy, BI-RAD 6 Management: Surgical Consultation of the right breast. A negative mammogram report should not preclude additional follow up of suspicious palpable abnormalities. Patient should continue monthly self breast exam. A clinical breast exam by your physician is recommended on an annual basis and results should be correlated with mammographic findings. Note on Lanette scores and lifetime risk: 1. A Lanette score greater than 3% is considered moderate risk. If this is the case, consider specialist referral to assess eligibility for a risk reducing agent. 2. If overall lifetime risk for the development of breast cancer is 20% or higher, the patient may qualify for future screening with alternating mammogram and breast MRI. [facility], , 07/14/2024 11:32 AM. Electronically signed and approved by: Italo Kilpatrick D.O. Radiologis
== END | disposition home or self-care (01) ==
LOC: RADMAMWWP 10:58
PROVIDERS: ATTEND Surgery
CPT/HCPCS: 77061; 77065

== ENCOUNTER → 2024-07-21 | Outpatient (CLI) | payer MEDICARE, OTHER ==
[2024-07-21 12:47] VITALS: BP 160/89; PULSE 63; RESP 16; TEMP 98.3
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
== END ==
LOC: WWCWWP 11:54
PROVIDERS: ATTEND Surgery
DX: C50.411 Malignant neoplasm of upper-outer quadrant of right female breast

== ENCOUNTER 2024-07-25 08:12 | Day surgery (SDC) | payer MEDICARE, OTHER ==
[~2024-07-25 08:12] MED LIST: ACETAMINOPHEN TAB 500 MG TAB PO PRN; MIDAZOLAM 2 MG/2 ML VIAL IV PRN; SCOPOLAMINE 1 MG/72 HR PATCH TRANSDERM ONE; fentaNYL (PF) 50 MCG/ML 2 ML AMP IV PRN
[2024-07-25] MEDS: ALPRAZolam 0.5 MG TAB PO STA (09:13)
[2024-07-25 09:29] LABS: Glucose,Whole Blood 153 mg/dL (70-110)
[2024-07-25] MEDS: LACTATED RINGERS 1,000 ML IV SCH (09:29)
[2024-07-25] MEDS: IV FLUID CONTINUATION 1,000 ML IV ONE (09:31)
[2024-07-25 09:43] LABS: African American GFR (CKD) >90 (>60 ml/min/1.73 sqM); Anion Gap 7 mmol/L; Blood Urea Nitrogen 16 mg/dL (7-17); Calcium 9.6 mg/dL (8.4-10.2); Carbon Dioxide 25 mmol/L (22-30); Chloride 107 mmol/L (98-107); Glucose 156 mg/dL (74-99); Non-African American GFR(CKD) 90 (>60 ml/min/1.73 sqM); Sodium 139 mmol/L (137-145)
[2024-07-25] MEDS: LIDOCAINE 1% INJ 10MG/ML (20 ML MDV) SQ ONE ×2 (09:50→14:26)
[2024-07-25 10:02] LABS: HCT 43.6 % (34.0-46.0); MCH 29.5 pg (25.0-35.0); MCV 92.2 fL (80.0-100.0); Mean Platelet Volume 8.9; Platelet Count 226 k/uL (150-450); RBC 4.73 m/uL (3.80-5.40); RDW 12.8 % (11.5-15.5)
[2024-07-25 10:36] LABS: Potassium 4.6 mmol/L (3.5-5.1)
[2024-07-25] MEDS: HEPARIN SODIUM,PORCINE 5,000 UNIT/ML 1 ML VIAL SQ PRN (10:36)
[2024-07-25] MEDS: DEXAMETHASONE SOD PHOSPHATE 4 MG/ML 1 ML VIAL IV ONE (10:36)
[2024-07-25] MEDS: ONDANSETRON 4 MG/2 ML VIAL IVP ONE (10:36)
[2024-07-25 11:17] LABS: Eosinophils # (M) 0.14 k/uL (0-0.7); Lymphocytes # (M) 2.45 k/uL (1.0-4.8); Monocytes # (M) 0.21 k/uL (0-1.0); Neutrophils % (M) 60 %; Nucleated Red Blood Cells 0 /100 WBC (0-0); Total Cells Counted 100
--- NOTE | 2024-07-25 11:58 | P.NAPBC ---
NAPBC Queries - NAPBC Queries Was patient's case review presented at [facility] tumor board? If no, comment.: Yes Was patient's pathology reviewed at [facility]? If no, comment.: Yes Was breast conservation surgery offered? If no, comment.: Yes Was sentinel node biopsy offered? If no, comment.: Yes Was diagnosis confirmed by percutaneous core biopsy? If no, comment.: Yes Is patient mastectomy patient?: No Clinical Stage: stage 1 right breast invasive ductal cancer [id number]+Pr+Her2-
[2024-07-25] MEDS ORDERED: KETAMINE HCL IN 0.9 % NACL 50 MG/5 ML SYRINGE ONE (12:25)
[2024-07-25] MEDS ORDERED: HYDROmorphone (PF) 1 MG/ML ONE (12:25)
[2024-07-25] MEDS ORDERED: LIDOCAINE 1% INJ 10MG/ML (20 ML MDV) ONE (12:25)
[2024-07-25] MEDS ORDERED: WATER FOR INJECTION, STERILE 10 ML VIAL IV ONE (12:25)
[2024-07-25] MEDS ORDERED: SUCCINYLCHOLINE CHLORIDE 200 MG/10 ML VIAL IV ONE (12:25)
[2024-07-25] MEDS ORDERED: ePHEDrine 50 MG/ML 1 ML VIAL ONE (12:25)
[2024-07-25] MEDS ORDERED: PROPOFOL 10 MG/ML 20 ML VIAL IV ONE (12:25)
[2024-07-25] MEDS ORDERED: fentaNYL (PF) 50 MCG/ML 2 ML AMP ONE (12:25)
[2024-07-25] MEDS ORDERED: GLYCOPYRROLATE 0.2 MG/ML 2 ML VIAL ONE (12:25)
--- NOTE | 2024-07-25 13:36 | NM ---
EXAMINATION TYPE: NM sentinel node injection DATE OF EXAM: 07/25/2024 COMPARISON: NONE CLINICAL INDICATION: Female, 59 years old with history of RIGHT BREAST CA; TECHNIQUE AND FINDINGS: The procedure of sentinel lymph node injection was explained to the patient. The benefits, alternatives, and risks were discussed. An informed consent was then obtained. Overlying skin is cleaned with sterile alcohol. Following this, 556 uCi [id number] Tilmanocept was inject ed in the upper outer aspect of the RIGHT nipple intradermally. The patient tolerated the procedure well without any immediate complication. The patient was kept in the radiology department for short stay after the procedure and then taken to surgery for surgical p rocedure what is presumed intraoperative gamma probe will be used for sentinel lymph node detection. IMPRESSION: RIGHT breast radiotracer injection for sentinel node localization as above. [facility], , 07/25/2024 1:34 PM
--- NOTE | 2024-07-25 14:31 | P.BCAON ---
Date of Procedure: 07/25/24 Preoperative Diagnosis: Invasive ductal carcinoma right breast Postoperative Diagnosis: Same Procedure(s) Performed: Right breast needle localization lumpectomy, right sentinel node biopsy Anesthesia: ELIZABETHA Surgeon: Carrie Quiroz Estimated Blood Loss (ml): 20 IV fluids (ml): 600 Condition: stable Disposition: same day Indications for Procedure: Biopsy-proven right breast invasive ductal carcinoma Operative Findings: Dense breast tissue and fibrofatty subcutaneous tissue in the breast Description of Procedure: The patient is a 59-year-old female with a biopsy-proven invasive ductal carcinoma of the right breast. After discussion she opted for a right breast sentinel node biopsy, needle localization lumpectomy. The patient was initially seen in the radiology department where needle localization of the area of c oncern was performed as well as injection of the periareolar area. This was with a radioactive tracer for sentinel node biopsy. The patient was then brought to the operative suite. Following induction of anesthesia the neoprobe was evaluated in the area of the axilla. Radiotracer was proven to have traveled. The right breast and axilla were prepped and draped in a sterile fashion. Following this using the neoprobe as a guide incision was made in the axilla. This was carried down to the axillary tissue. Using the neoprobe the area of greatest radioactivity was identified. The tissue was grasped using an Allis clamp. This was excised. There was noted to be a lymph node present in the 10-second count on the lymph node was 1798. This was felt to be the sentinel node. The background 10-second count was 20. After assuring that hemostasis was attained the wound was well irrigated. The subcutaneous tissues were closed using 3-0 Vicryl suture. This was followed by closure of the skin with 4-0 Monocryl. The area of the breast was then approached. An incision was made in the breast parenchyma and carried down to the shaft of the wire. Dissection was performed circumferentially with particular attention to the superior lateral aspect. It was in this aspect that the clip appeared to be present. Wide excision was performed of the area of the lesion. The specimen was 7-1/2 cm x 5 cm. It was painted for orientation. Radiograph of the specimen revealed the lesion of concern but not to the clip. The specimen was sent to pathology where it was bisected and after discussion with the pathologist he believes that the biopsy cavity as well as a lesion was identified and totally removed. Despite this additional tissue was removed superior medial and inferiorly. There was painted for new margins. Radiograph of the additional tissue did not reveal the clip. There was some bleeding during the procedure and your irrigation as well as suctioning and it was thought that perhaps the clip had been suctioned out. The specimen was personally reviewed with the radiologist and it was felt that the lesion was removed. Therefore it was determined to terminate the case. The wound was well irrigated. Titanium clips were placed. Surgicel in powder form was placed. The deep tissues were closed using 3-0 Vicryl suture. This was followed by closure of the skin with 4-0 Monocryl. The skin was further reinforced with a nylon running suture. The patient tolerated the procedure in stable condition. All instrument and sponge counts were correct at the end of the case. Again it should be noted that the clip was not identified in the specimen although the lesion of concern was felt to be removed both by the radiologist and after review with pathology. - Sentinal Node Biopsy Operation performed with curative intent: Yes Tracer(s) used in upfront surgery (non-neoadjuvant): radioactive tracer Tracer(s) used in the neoadjuvant setting: N/A All nodes present at end of dye-filled channel removed: N/A All significantly radioactive nodes were removed: Yes All palpably suspicious nodes were removed: Yes
--- NOTE | 2024-07-25 14:33 | P.DS ---
Providers Attending physician: Carrie Quiroz Primary care physician: Merced Harvey Plan - Discharge Summary Discharge Rx Participant: No New Discharge Prescriptions: No Action HYDROcodone/APAP 10-325MG [[place] 10] 1 tab PO QID Omeprazole 20 mg PO DAILY PRN PRN Reason: Heartburn metFORMIN HCL ER [Glucophage XR] 750 mg PO AC-SUPPER Atorvastatin [Lipitor] 40 mg PO HS Flecainide [Tambocor] 50 mg PO Q12HR Apixaban [Eliquis] 5 mg PO BID Meclizine [Antivert] 12.5 mg PO BID PRN PRN Reason: Vertigo Discharge Medication List HYDROcodone/APAP 10-325MG [[place] 10] 1 tab PO QID 01/12/15 [History] Omeprazole 20 mg PO DAILY PRN 03/24/18 [History] Apixaban [Eliquis] 5 mg PO BID 07/15/23 [History] metFORMIN HCL ER [Glucophage XR] 750 mg PO AC-SUPPER 07/15/23 [History] Atorvastatin [Lipitor] 40 mg PO HS 07/20/24 [History] Flecainide [Tambocor] 50 mg PO Q12HR 07/20/24 [History] Meclizine [Antivert] 12.5 mg PO BID PRN 07/20/24 [History] Follow up Appointment(s)/Referral(s): Carrie Quiroz MD [STAFF PHYSICIAN] - 08/04/24 1:20 pm Activity/Diet/Wound Care/Special Instructions: do not drive for 24 hours from discharge, or if taking narcotic pain medicine may shower after 48 hours wear bra at all times Discharge Disposition: HOME SELF-CARE
[2024-07-25 14:43] VITALS: TEMP 97
[2024-07-25] MEDS: HYDROmorphone 0.5 MG/0.5 ML SYRINGE IVP STA (14:59)
[2024-07-25] MEDS: HYDROcodone/APAP 10-325MG 1 EACH TAB PO ONE (15:56)
[2024-07-25 16:37] VITALS: BP 150/93; PULSE 74; RESP 16
--- NOTE | 2024-08-03 10:27 | MM ---
Reason for Exam: Post Procedure Mammogram. Last mammogram was performed 1 year(s) and 1 month(s) ago. Patient History: Menarche at age 12. First Full-Term at age 16. Postmenopausal. Breast cancer, right, age 59. 06/07/2024, Malignant US biopsy breast VAD RT on the right side. 08/06/2014, Benign Cyst Aspiration on the left side. 08/04/2023, US discontinued breast bx RT on the right side. 09/16/2015, MG discontinued stereo core LT on the left side. Mother had breast cancer, age 55. Prior Study Comparison: 07/13/2023 Right MG 3D work up w/cad RT, [facility]. 06/07/2024 Right MG diagnostic mammo RT wo CAD, [facility]. 07/14/2024 Left MG 3D diag mammo w/cad LT, [facility]. Tissue Density: Right: The breasts are heterogeneously dense, which may obscure small masses. Pathology Description: Location: 11 o'clock. Needle Type: 5 cm [place] Informed consent was obtained and all the patient's questions were answered. The lesion in question was localized sonographically. The standard sterile technique was utilized, as well as appropriate local anesthesia with 1% Lidocaine. Localization needle followed by placement of a guidewire was performed under the thoracic guidance. Verification images demonstrate appropriate deployment of the guidewire. The patient tolerated the procedure well and left the department in stable condition. Specimen radiograph and sonogram demonstrates the lesion in question to reside within the specimen. The clip could not be localized despite additional specimen radiographs obtained. The clip that was noted to be outside of the lesion on preprocedure ultrasound. IMPRESSION: Successful needle localization and open biopsy right breast with pathology results pending. Pathology Results: Result: Malignant, Invasive ductal carcinoma. Pathology and radiology were reviewed. Findings are concordant. A. 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 See Surgical Pathology Cancer Case Summary and comment. Posterior margin focally involved by invasive ductal carcinoma (approximately 1 mm area). All other margins negative for invasive carcinoma. All margins negative for DCIS with DCIS measuring less than 1 mm from closest posterior margin. B. RIGHT BREAST, NEW SUPERIOR MARGIN, EXCISION: Benign breast tissue with fibrocystic change with focal usual ductal hyperplasia and columnar cell change with microcalcification and focal features suggestive of flat epithelial atypia (FEA). New superior margin negative for malignancy. C. RIGHT BREAST, NEW INFERIOR MARGIN, EXCISION: Benign breast tissue with fibrocystic change, focal microcalcification and columnar cell change with focal features suggestive of flat epithelial atypia (FEA). New inferior margin negative for malignancy. [place] usual ductal hyperplasia. D. NEW MEDIAL MARGIN, EXCISION: Benign breast tissue with fibrocystic change having columnar cell change. New medial margin negative for malignancy. E. RIGHT SENTINEL LYMPH NODES, DISSECTION: Two sentinel lymph nodes, each negative for metastatic carcinoma (see comment after cancer protocol). F. DESIGNATED "RIGHT BREAST SUPERIOR PILLAR", EXCISION: Benign breast tissue with fibrocystic change and microcalcification. Overall Assessment: Malignant Assessment: MG diagnostic mammo RT wo CAD - Right: Known biopsy proven malignancy, BI-RAD 6. Management: Surgical Consultation of the right breast. Electronically signed and approved by: Darwin Frazier M.D. Radiologis
== END 2024-07-25 17:25 | disposition home or self-care (01) ==
LOC: OR 08:12
PROVIDERS: ATTEND Surgery
DX: C50.411 Malignant neoplasm of upper-outer quadrant of right female breast
CPT/HCPCS: 38792; 76098; 76999; 77065; 80048; 85025; 88305; 88307; 88341; 88342

== ENCOUNTER → 2024-08-04 | Outpatient (CLI) | payer MEDICARE, OTHER ==
[2024-08-04 11:55] VITALS: BP 150/80; PULSE 49; RESP 16; TEMP 98.3
--- NOTE | 2024-08-04 12:04 | P.BCPO ---
Progress Note - Text Progress Note Date: 08/04/24 Magaly is a 59 year old status post right breaset lumpectomy and SNB on 07-25-24. She had an 8mm invasive ductal cancer Grade 2ER+Pr+Her2- lesion resected with a 1mm (+) posterior margin. two nodes removed (-). DCIS present 3mm in greatest extent. The clip was not in the specimen. Postoperatively. Examination: Lungs: Clear Heart: Regular rate and rhythm Incision axilla and breast clean and dry Impression: +1 mm posterior margin for an 8 mm invasive ductal carcinoma Plan: Appointment medical oncology Appointment radiation oncology Would recommend reexcision of posterior margin I have discussed with the patient reexcision of the posterior margin. She understands and this will most likely be scheduled in the near future. CC: Dr. Liriano
== END ==
LOC: WWCWWP 11:40
PROVIDERS: ATTEND Surgery

== ENCOUNTER 2024-08-15 11:06 | Day surgery (SDC) | payer MEDICARE, OTHER ==
[2024-08-11 14:59] VITALS: BMI 31.5
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
[~2024-08-15 11:06] MED LIST changes: -ACETAMINOPHEN TAB 500 MG TAB PO PRN; +LIDOCAINE 1% (10MG/ML) FOR IV START INTRADERMA PRN; -MIDAZOLAM 2 MG/2 ML VIAL IV PRN; +Pre Op ABX Message 1 EACH MISC MISCELLANE ONE; -SCOPOLAMINE 1 MG/72 HR PATCH TRANSDERM ONE; +droPERidol 5 MG/2 ML VIAL IVP ONE
[2024-08-15] MEDS: DEXAMETHASONE SOD PHOSPHATE 4 MG/ML 1 ML VIAL IV ONE (12:09)
[2024-08-15] MEDS: ONDANSETRON 4 MG/2 ML VIAL IVP ONE (12:09)
[2024-08-15] MEDS: HEPARIN SODIUM,PORCINE 5,000 UNIT/ML 1 ML VIAL SQ PRN (12:10)
[2024-08-15] MEDS: ACETAMINOPHEN TAB 500 MG TAB PO PRN (12:10)
[2024-08-15] MEDS: LACTATED RINGERS 1,000 ML IV SCH (12:13)
[2024-08-15 12:16] VITALS: RESP 16
[2024-08-15 12:16] LABS: Glucose,Whole Blood 136 mg/dL (70-110)
--- NOTE | 2024-08-15 12:30 | P.NAPBC ---
NAPBC Queries - NAPBC Queries Was patient's case review presented at [facility] tumor board? If no, comment.: Yes Was patient's pathology reviewed at [facility]? If no, comment.: Yes Was breast conservation surgery offered? If no, comment.: Yes Was sentinel node biopsy offered? If no, comment.: Yes Was diagnosis confirmed by percutaneous core biopsy? If no, comment.: Yes Is patient mastectomy patient?: No Was a preop referral to reconstructive surgeon offered?: No Clinical Stage: Stage I right breast invasive ductal cancer [id number]+Pr+Her2-G2, (+ posterior margin)
[2024-08-15] MEDS: IV FLUID CONTINUATION 1,000 ML IV ONE (12:41)
[2024-08-15] MEDS: MIDAZOLAM 2 MG/2 ML VIAL IV ONE (12:45)
[2024-08-15] MEDS ORDERED: LIDOCAINE 1% INJ 10MG/ML (20 ML MDV) ONE (12:50)
[2024-08-15] MEDS ORDERED: MIDAZOLAM 2 MG/2 ML VIAL ONE (12:50)
[2024-08-15] MEDS ORDERED: SUCCINYLCHOLINE CHLORIDE 200 MG/10 ML VIAL IV ONE (12:50)
[2024-08-15] MEDS ORDERED: fentaNYL (PF) 50 MCG/ML 2 ML AMP ONE (12:50)
[2024-08-15] MEDS ORDERED: PROPOFOL 10 MG/ML 20 ML VIAL IV ONE (12:50)
[2024-08-15] MEDS: LIDOCAINE 1% INJ 10MG/ML (30 ML VIAL-PF) SQ ONE ×2 (13:15→13:36)
--- NOTE | 2024-08-15 13:34 | P.BCAON ---
Date of Procedure: 08/15/24 Preoperative Diagnosis: Positive posterior margin Postoperative Diagnosis: Same Procedure(s) Performed: Reexcision of posterior margin right breast lumpectomy site Anesthesia: ELIZABETHA Surgeon: Carrie Quiroz Estimated Blood Loss (ml): 5 IV fluids (ml): 200 Pathology: other Indications for Procedure: +1 mm posterior margin on lumpectomy Operative Findings: Lumpectomy cavity Description of Procedure: The patient was brought to the operating room and following induction of anesthesia the right breast was prepped and draped in a sterile fashion. An incision was made in the prior lumpectomy site. The cavity was opened and dissection was performed down to the posterior wall of the cavity. The lateral aspect of the cavity was already on the pectoralis muscle but there was tissue medially which was excised. This tissue was excised down to the pectoralis muscle. The cavity was well irrigated. The superior and inferior pillars were brought together using 3-0 Vicryl suture. The subcutaneous tissue was closed using 3-0 Vicryl suture. The skin was closed using 4-0 Monocryl. The patient tolerated the procedure in stable condition. The new posterior margin was painted for orientation. This was sent to pathology. All instrument and sponge counts were correct at the end of the case. 10 cc of 1% lidocaine were injected into the area of the incision.
[2024-08-15 14:05] VITALS: TEMP 97
[2024-08-15] MEDS: hydrALAZINE HCL 20 MG/ML 1 ML VIAL IVP STA (14:32)
[2024-08-15] MEDS: HYDROmorphone 0.5 MG/0.5 ML SYRINGE IVP STA (14:51)
[2024-08-15] MEDS ORDERED: HYDROmorphone 0.5 MG/0.5 ML SYRINGE IM STA (14:51)
[2024-08-15] MEDS: HYDROcodone/APAP 10-325MG 1 EACH TAB PO ONE (15:52)
[2024-08-15 16:15] VITALS: BP 152/85; PULSE 70
== END 2024-08-15 16:24 | disposition home or self-care (01) ==
LOC: OR 11:06
PROVIDERS: ATTEND Surgery
DX: C50.911 Malignant neoplasm of unspecified site of right female breast (principal); Z17.0 Estrogen receptor positive status [ER+]; Z17.21 Progesterone receptor positive status; Z17.32 Human epidermal growth factor receptor 2 negative status; I48.91 Unspecified atrial fibrillation; I10 Essential (primary) hypertension; E11.9 Type 2 diabetes mellitus without complications; E78.5 Hyperlipidemia, unspecified; J44.9 Chronic obstructive pulmonary disease, unspecified; G47.33 Obstructive sleep apnea (adult) (pediatric); M06.9 Rheumatoid arthritis, unspecified; K21.9 Gastro-esophageal reflux disease without esophagitis; F41.9 Anxiety disorder, unspecified; F17.290 Nicotine dependence, other tobacco product, uncomplicated; Z79.01 Long term (current) use of anticoagulants; Z79.84 Long term (current) use of oral hypoglycemic drugs; Z79.899 Other long term (current) drug therapy; Z91.041 Radiographic dye allergy status; Z88.5 Allergy status to narcotic agent; Z91.013 Allergy to seafood; Z80.3 Family history of malignant neoplasm of breast
CPT/HCPCS: 88307; 19301; J2250; J0330; J0360; J1644; J1100; J2405; J2003 ×2; J3010; J2704; J1171

== ENCOUNTER → 2024-08-24 | Outpatient (CLI) | payer MEDICARE, OTHER ==
--- NOTE | 2024-08-24 09:09 | P.BCPO ---
Progress Note - Text Progress Note Date: 08/24/24 08/04/24 Magaly is a 59 year old status post right breast lumpectomy and SNB on 07-25-24. She had an 8mm invasive ductal cancer Grade 2ER+Pr+Her2- lesion resected with a 1mm (+) posterior margin. two nodes removed (-). DCIS present 3mm in greatest extent. The clip was not in the specimen. She had a repeat excision of posterior margin on 08-15-24 no additional tumor noted. Postoperatively. Examination: Lungs: Clear Heart: Regular rate and rhythm Incision axilla and breast clean and dry Impression: +1 mm posterior margin for an 8 mm invasive ductal carcinoma re-excision, (-) margin Plan: Appointment medical oncology Appointment radiation oncology CC: Dr. Harvey Additional CC's: Merced Harvey
[2024-08-24 09:12] VITALS: BP 146/89; PULSE 73; RESP 18; TEMP 98.1
== END ==
LOC: WWCWWP 09:00
PROVIDERS: ATTEND Surgery
DX: Z48.817 Encounter for surgical aftercare following surgery on the skin and subcutaneous tissue (principal); F17.200 Nicotine dependence, unspecified, uncomplicated; Z85.3 Personal history of malignant neoplasm of breast; Z98.890 Other specified postprocedural states; Z88.5 Allergy status to narcotic agent; Z91.013 Allergy to seafood; Z91.041 Radiographic dye allergy status

== ENCOUNTER → 2024-11-02 | Outpatient (CLI) | payer MEDICARE, OTHER ==
--- NOTE | 2024-11-02 13:15 | BD ---
EXAMINATION TYPE: Axial Bone Density DATE OF EXAM: 11/02/2024 CLINICAL HISTORY: 59 years old Female. ICD-10 CODE: M81.0 AGE-RELATED OSTEOPOROSIS W/O CURRENT PATHO LOGY , Additional History: Height: 5 ft 4 in Weight: 182 FRAX RISK QUESTIONS: Alcohol (3 or more units per day): no Family History (Parent hip fracture): no Glucocorticoids (More than 3mos): no (Ex: prednisone, prednisolone, methylprednisolone, dexamethasone, and hydrocortisone). History of Fracture in Adulthood: yes Secondary Osteoporosis: 1. Type 1 Diabetes: type 2 2. Hyperthyroidism: no 3. Menopause before 45: no 4. Malnutrition: no 5. Chronic liver disease: no Rheumatoid Arthritis: no Current Tobacco Use: vape RISK FACTORS HISTORY OF: Surgery to Spine/Hip(right/left)/Wrist (right/left): no MEDICATIONS: Thyroid Medications: none Osteoporosis Medications: none EXAM MEASUREMENTS: Bone mineral densitometry was performed using the [employer] System. Bone mineral density as measured about the Lumbar spine is: ----- L1-L4(G/cm2): 1.008 T Score Values are as follows: ----- L1: -0.5 ----- L2: -1.6 ----- L3: -1.1 ----- L4: -2.4 ----- L1-L4: -1.4 Z Score Values are as follows: ----- L1: 0.0 ----- L2: -1.0 ----- L3: -0.5 ----- L4: -1.8 ----- L1-L4: -0.9 baseline Bone mineral density about the R hip (g/cm2): 0.851 Bone mineral density about the L hip (g/cm2): 0.811 T Score values are as follows: -----R Neck: -1.3 -----L Neck: -1.6 -----R Total: -1.1 -----L Total: -1.2 Z Score values are as follows: -----R Neck: -0.5 -----L Neck: -0.8 -----R Total: -0.6 -----L Total: -0.8 baseline FRAX%s: The graph provided illustrates a 13.9 % chance for a major osteoporotic fx and a 2.3 % chance for the hips probability for fx in 10 years time. IMPRESSION: Osteopenia (T Score between -2.5 and -1). There is slightly increased risk of fracture and the patient may be considered for treatment. Re-Screen 2-5 years. NOTE: T-SCORE=SD OF THE YOUNG ADULT MEAN. [facility], , 11/02/2024 1:13 PM
== END | disposition home or self-care (01) ==
LOC: RADBDWWP 11:29
PROVIDERS: ATTEND Internal Medicine
DX: M81.0 Age-related osteoporosis without current pathological fracture (principal); M85.89 Other specified disorders of bone density and structure, multiple sites
CPT/HCPCS: 77080

== ENCOUNTER → 2025-05-14 | Outpatient (CLI) | payer MEDICARE, OTHER ==
--- NOTE | 2025-05-14 12:11 | MM ---
Reason for Exam: Hx of breast cancer, conservation therapy. Last mammogram was performed 1 year(s) and 10 month(s) ago. Patient History: Menarche at age 12. First Full-Term at age 16. Postmenopausal. Breast cancer, right, age 59. Previous chest radiation therapy at age 59. 07/25/2024, Lumpectomy on the Right side. 07/25/2024, US breast surgical speciment RT on the Right side. 07/25/2024, Malignant US breast localization RT on the right side. 06/07/2024, Malignant US biopsy breast VAD RT on the right side. 08/06/2014, Benign Cyst Aspiration on the left side. 08/04/2023, US discontinued breast bx RT on the right side. 09/16/2015, MG discontinued stereo core LT on the left side. Mother had breast cancer, age 55. Prior Study Comparison: 12/03/2009 Screening Mammogram, [facility]. 02/05/2015 Left Diagnostic Ultrasound, [facility]. 07/25/2015 Bilateral Diagnostic Mammogram, [facility]. 03/25/2016 Left Diagnostic Mammogram, [facility]. 02/04/2017 Bilateral Diagnostic Mammogram, [facility]. 02/04/2017 Left Diagnostic Ultrasound, [facility]. 07/19/2017 Left Diagnostic Ultrasound, [facility]. 04/29/2018 Bilateral Diagnostic Mammogram, [facility]. 06/06/2019 Bilateral Screening Mammogram, [facility]. 01/22/2021 Bilateral Screening Mammogram, [facility]. 07/02/2023 Bilateral MG 3D screening mammo w/cad, [facility]. 07/13/2023 Right MG 3D work up w/cad RT, [facility]. 07/13/2023 Right US breast workup limited RT, [facility]. 06/07/2024 Right MG diagnostic mammo RT wo CAD, [facility]. 07/14/2024 Left MG 3D diag mammo w/cad LT, [facility]. 07/25/2024 Right MG diagnostic mammo RT wo CAD, [facility]. Tissue Density: The breasts are heterogeneously dense, which may obscure small masses. Findings: Analyzed By CAD. Postsurgical and posttreatment changes right breast. There is a circumscribed masslike area at the patient's right posterior upper-outer quadrant surgical site measuring 3.4 cm suggesting a postoperative seroma. 6 month follow-up can be performed. Asymmetric densities on the left remain unchanged. Overall Assessment: Probably benign, BI-RAD 3 Management: Diagnostic Mammogram of the right breast in 6 months. Results were given to the patient verbally at the time of exam. Patient should continue monthly self-breast exams. A clinical breast exam by your physician is recommended on an annual basis. This exam should not preclude additional follow-up of suspicious palpable abnormalities. [facility], , 05/14/2025 12:08 PM. Electronically signed and approved by: Julianne Velasco M.D. Radiologist
== END | disposition home or self-care (01) ==
LOC: RADMAMWWP 11:34
PROVIDERS: ATTEND Radiology Radiation Oncology
DX: C50.411 Malignant neoplasm of upper-outer quadrant of right female breast (principal); R92.333 Mammographic heterogeneous density, bilateral breasts; Z78.0 Asymptomatic menopausal state; Z17.0 Estrogen receptor positive status [ER+]; Z85.3 Personal history of malignant neoplasm of breast; Z80.3 Family history of malignant neoplasm of breast
CPT/HCPCS: 77066; G0279; 77062